=== PATIENT | male | born 1990 | race Caucasian/White ===

== ENCOUNTER 2017-12-03 20:49 | Inpatient (IN) | payer MEDICAID ==
[~2017-12-03] VITALS: Ht 175.3 cm; Wt 159.4 kg
[2017-12-03 21:28] LABS: Basophils # (auto) 0.2 uL; Basophils % (auto) 1.5 % (0.0-2.0); Eosinophils # (auto) 0.3 uL; Eosinophils % (auto) 3.1 % (0.0-7.0); Hematocrit 44.7 % (41.0-53.0); Hemoglobin 15.2 g/dL (13.5-17.5); Lymphocytes # (auto) 3.2 uL; Mean Corpuscular Hemoglobin 30.5 pg (28.0-32.0); Mean Corpuscular Volume 89.7 fL (80.0-100.0); Monocytes # (auto) 0.8 uL; Monocytes % (auto) 7.2 % (0.0-12.0); Neutrophils # (auto) 6.6 uL; Neutrophils % (auto) 59.2 % (37.0-80.0); Nucleated Red Blood Cells % 0.1 %; Platelet Count (auto) 257 10^3/uL (140-450); Red Blood Cells 4.98 10^6/uL (4.5-5.90); Red Cell Distribution Width 12.8 % (11.8-14.3); White Blood Cell 11.2 10^3/uL (4.4-10.8)
[2017-12-03 21:47] LABS: Albumin 3.4 g/dL (3.4-5.0); Anion Gap 9 (5-15); Aspartate Aminotransferase 18 U/L (15-37); BUN/Creatinine Ratio 19.3; Blood Urea Nitrogen 22 mg/dL (7-18); Calcium 8.4 mg/dL (8.5-10.1); Carbon Dioxide 26 mmol/L (21-32); Chloride 107 mmol/L (98-107); GFR African American 98 mL/min; GFR Non-African American 81 mL/min; Glucose 97 mg/dL (74-106); Sodium 142 mmol/L (136-145)
[2017-12-03 21:52] LABS: Alanine Aminotransferase 47 U/L (16-61); Alkaline Phosphatase 70 U/L (45-117); Bilirubin, Total 0.2 mg/dL (0.2-1.0); Total Protein 7.3 g/dL (6.4-8.2)
[2017-12-04] MEDS ORDERED: MORPHINE SULFATE 8mg/ml INJ SDV IV ONE (00:45)
[2017-12-04] MEDS ORDERED: ONDANSETRON HCL 4 MG/2 ML VIAL IV ONE (00:45)
[2017-12-04 01:14] LABS: INR 0.9 (0.9-1.15); Partial Thromboplastin Time 26.9 sec (22.64-33.71); Prothrombin Time 9.8 sec (9.37-12.3)
[2017-12-04] MEDS ORDERED: MORPHINE SULFATE 8mg/ml INJ SDV IV PRN (05:15)
[2017-12-04] MEDS ORDERED: NITROGLYCERIN 0.4 MG SL TAB SL PRN (05:15)
[2017-12-04 05:52] LABS: Basophils # (auto) 0 uL; Basophils % (auto) 0.5 % (0.0-2.0); Eosinophils # (auto) 0.3 uL; Eosinophils % (auto) 3.4 % (0.0-7.0); Hematocrit 43.4 % (41.0-53.0); Hemoglobin 14.9 g/dL (13.5-17.5); Lymphocytes # (auto) 3.1 uL; Lymphocytes % (auto) 32.2 % (10.0-50.0); Mean Corpuscular Hgb Conc. 34.3 g/dL (32.0-36.0); Mean Corpuscular Volume 90.3 fL (80.0-100.0); Monocytes # (auto) 0.9 uL; Monocytes % (auto) 9.6 % (0.0-12.0); Neutrophils # (auto) 5.1 uL; Neutrophils % (auto) 54.3 % (37.0-80.0); Nucleated Red Blood Cells % 0.1 %; Platelet Count (auto) 213 10^3/uL (140-450); Red Cell Distribution Width 12.7 % (11.8-14.3); White Blood Cell 9.5 10^3/uL (4.4-10.8)
[2017-12-04 06:15] LABS: Anion Gap 7 (5-15); Blood Urea Nitrogen 21 mg/dL (7-18); Calcium 8.6 mg/dL (8.5-10.1); Carbon Dioxide 29 mmol/L (21-32); Chloride 107 mmol/L (98-107); Glucose 105 mg/dL (74-106); Potassium 3.8 mmol/L (3.5-5.1); Sodium 143 mmol/L (136-145)
[2017-12-04 06:17] LABS: BUN/Creatinine Ratio 22.1; GFR African American 121 mL/min; GFR Non-African American 100 mL/min
[2017-12-04 06:26] VITALS: BP 111/68
[2017-12-04] MEDS ORDERED: FUROSEMIDE 40 MG/4 ML VIAL IV ONE (07:00)
[2017-12-04] MEDS ORDERED: ALBUTEROL SULF 2.5 MG/0.5ML(0.5%) NEB SOLN NEB PRN (07:00)
[2017-12-04] MEDS: LORazepam 0.5 MG TAB PO PRN ×2 (07:55→22:35)
[2017-12-04] MEDS ORDERED: CETI10CA PO (08:08)
[2017-12-04] MEDS ORDERED: TOPI100T68 PO (08:08)
[2017-12-04] MEDS ORDERED: MONT10TA34 PO (08:08)
[2017-12-04] MEDS ORDERED: FLUT50SP (08:08)
[2017-12-04] MEDS ORDERED: POTA10TA51 PO (08:08)
[2017-12-04] MEDS ORDERED: FURO20TA3 PO (08:08)
[2017-12-04] MEDS ORDERED: PANT40TA2 PO (08:08)
[2017-12-04 08:34] VITALS: BP 111/68
[2017-12-04 10:14] LABS: Urine WBC None Seen /hpf (0 - 3)
[2017-12-04 10:46] LABS: Alcohol, Urine < 3.0 mg/dL (0-5); Amphetamine Screen, Urine NEGATIVE (NEGATIVE); Barbiturate Scree,Urine NEGATIVE (NEGATIVE); Benzodiazephine Screen, Urine NEGATIVE (NEGATIVE); Cannabinoid Screen, Urine POSITIVE (NEGATIVE); Cocaine Screen, Urine NEGATIVE (NEGATIVE); Opiate Scree,Urine POSITIVE (NEGATIVE); Phencyclidine Screen, Urine NEGATIVE (NEGATIVE)
[2017-12-04 11:11] LABS: Urine Bacteria NONE SEEN /hpf (None Seen); Urine Blood Negative /uL (Negative); Urine Specific Gravity 1.024 (1.001-1.035)
[2017-12-04] MEDS: PANTOPRAZOLE 40 MG TAB PO SCH (11:41)
[2017-12-04] MEDS: TOPIRAMATE 100 MG TAB PO SCH (11:42)
[2017-12-04 12:13] VITALS: BP 111/68
[2017-12-04 12:45] VITALS: BP 112/69
[2017-12-04] MEDS: HYDROcodone-ACET 5/325MG TAB PO PRN ×2 (15:25→23:00)
[2017-12-04 17:07] VITALS: BP 123/67
[2017-12-04] MEDS: FUROSEMIDE 40 MG/4 ML VIAL IV SCH (18:11)
[2017-12-04] MEDS: MORPHINE SULFATE 8mg/ml INJ SDV IV PRN (21:00)
[2017-12-04 22:00] VITALS: BP 122/69
[2017-12-04] MEDS ORDERED: MONTELUKAST SODIUM 10 MG TAB PO SCH (22:00)
[2017-12-04] MEDS: POTASSIUM CHL 10 Meq TABLET PO SCH (22:34)
[2017-12-05 05:27] VITALS: BP 125/73
[2017-12-05 06:11] LABS: Basophils # (auto) 0.1 uL; Basophils % (auto) 0.8 % (0.0-2.0); Eosinophils # (auto) 0.3 uL; Eosinophils % (auto) 3.6 % (0.0-7.0); Hematocrit 45.5 % (41.0-53.0); Hemoglobin 15.5 g/dL (13.5-17.5); Lymphocytes # (auto) 2.9 uL; Lymphocytes % (auto) 29.5 % (10.0-50.0); Mean Corpuscular Hemoglobin 30.5 pg (28.0-32.0); Mean Corpuscular Hgb Conc. 34.1 g/dL (32.0-36.0); Mean Corpuscular Volume 89.5 fL (80.0-100.0); Monocytes # (auto) 0.9 uL; Monocytes % (auto) 9.1 % (0.0-12.0); Neutrophils # (auto) 5.5 uL; Nucleated Red Blood Cells % 0.1 %; Platelet Count (auto) 223 10^3/uL (140-450); Red Blood Cells 5.09 10^6/uL (4.5-5.90); Red Cell Distribution Width 12.8 % (11.8-14.3); White Blood Cell 9.7 10^3/uL (4.4-10.8)
[2017-12-05 06:22] LABS: Alanine Aminotransferase 44 U/L (16-61); Albumin 3.4 g/dL (3.4-5.0); Anion Gap 7 (5-15); Aspartate Aminotransferase 18 U/L (15-37); BUN/Creatinine Ratio 18.3; Blood Urea Nitrogen 20 mg/dL (7-18); Calcium 8.8 mg/dL (8.5-10.1); Carbon Dioxide 29 mmol/L (21-32); Chloride 106 mmol/L (98-107); GFR African American 103 mL/min; GFR Non-African American 85 mL/min; Glucose 97 mg/dL (74-106); Potassium 4.2 mmol/L (3.5-5.1); Sodium 142 mmol/L (136-145)
[2017-12-05 06:26] LABS: Alkaline Phosphatase 63 U/L (45-117); Bilirubin, Total 0.5 mg/dL (0.2-1.0); Total Protein 7.2 g/dL (6.4-8.2)
[2017-12-05] MEDS: FUROSEMIDE 40 MG/4 ML VIAL IV SCH ×2 (06:44→18:04)
[2017-12-05] MEDS: MORPHINE SULFATE 8mg/ml INJ SDV IV PRN ×2 (06:49→11:13)
[2017-12-05 09:00] VITALS: BP 127/76
[2017-12-05] MEDS: PANTOPRAZOLE 40 MG TAB PO SCH (09:41)
[2017-12-05] MEDS: POTASSIUM CHL 10 Meq TABLET PO SCH ×2 (09:41→18:26)
[2017-12-05] MEDS: TOPIRAMATE 100 MG TAB PO SCH (09:41)
[2017-12-05] MEDS: LORazepam 0.5 MG TAB PO PRN (10:07)
[2017-12-05 12:52] VITALS: BP 117/67
[2017-12-05] MEDS ORDERED: METO25TA5 PO (15:04)
[2017-12-05] MEDS: HYDROcodone-ACET 5/325MG TAB PO PRN (16:00)
[2017-12-05 17:00] VITALS: BP 121/69
== END 2017-12-05 18:55 | disposition home or self-care (01) | DRG 197 ==
LOC: ER 20:49 → TELE 20:50 → TELE-WESTW 12-04 05:56
PROVIDERS: ADMIT Nurse Practitioner Family; ATTEND Internal Medicine
DX: I73.9 Peripheral vascular disease, unspecified (principal); I50.43 Acute on chronic combined systolic (congestive) and diastolic (congestive) heart failure; I11.0 Hypertensive heart disease with heart failure; I25.10 Atherosclerotic heart disease of native coronary artery without angina pectoris; J45.909 Unspecified asthma, uncomplicated; R07.89 Other chest pain; N28.9 Disorder of kidney and ureter, unspecified; G47.30 Sleep apnea, unspecified; G40.909 Epilepsy, unspecified, not intractable, without status epilepticus; E66.01 Morbid (severe) obesity due to excess calories; F12.90 Cannabis use, unspecified, uncomplicated; Z68.43 Body mass index [BMI] 50.0-59.9, adult; Z87.891 Personal history of nicotine dependence; Z82.49 Family history of ischemic heart disease and other diseases of the circulatory system
CPT/HCPCS: 36415; 71045; 80048; 80053; 80307; 81001; 83735; 83880; 84484; 85025; 85379; 85610; 85730; 93005; 93306; 96374; 96375; J2270; J2405